=== PATIENT | male | born 1975 | race Caucasian/White ===

== ENCOUNTER 2020-03-25 00:35 | Emergency (ER) | payer SELFPAY ==
--- NOTE | ~2020-03-25 | XR_ITS ---
EXAMINATION: XR knee LT min 4V, XR tibia fibula LT 2V DATE: 03/25/2020 01:15 INDICATION: Lateral left lower leg pain. Left knee injury. TECHNIQUE: 1. Anteroposterior, 2 oblique and crosstable lateral views of the affected knee were obtained 2. AP and lateral views of the left lower leg were obtained. COMPARISON: None. FINDINGS: Alignment is normal. No fracture. Joint spaces are normal. No left knee or ankle joint effusion. Sof t tissues are unremarkable. IMPRESSION: 1. Negative left knee and tibia/fibula radiographs. Reviewed, dictated and finalized at location A. NSED MARINE ENGINEER IMPRESSION: 1. Negative left knee and tibia/fibula radiographs.
--- NOTE | 2020-03-25 00:38 | ED.EXTPRO ---
HPI - Extremity Problem General Chief complaint: Extremity Problem,Nontraumatic Stated complaint: pain left lower leg Time Seen by Provider: 03/25/20 00:38 Source: patient Mode of arrival: ambulatory Limitations: no limitations History of Present Illness HPI Narrative: Patient is a 44-year-old male who presents to the emergency department for evaluation of left lower extremity pain. Patient states he has had pain over the past 2 weeks which occurs only when he is standing up at his place of work. Patient states that he is required to stand for long periods of time and experiences a very sharp feeling that starts in his lower thigh and radiates through to his knee. This does not occur when he is walking. In fact walking relieves the pain. He denies any redness, swelling or masses. No bruising. No numbness. Patient states that he was doing some Internet searching online and is worried he may have a blood clot. He has no history of DVT. No recent surgery. No recent long car or air travel. Patient has been taking ibuprofen without much improvement in his symptoms. Related Data Allergies Allergy/AdvReac Type Severity Reaction Status Date / Time No Known Allergies Allergy Verified 03/25/20 00:36 Review of Systems Review of Systems: Narrative: CONSTITUTIONAL: Denies fever, chills, or sweats. CARDIOVASCULAR: Denies chest pain, palpitations, or edema. RESPIRATORY: Denies cough or dyspnea. GASTROINTESTINAL: Denies abdominal pain, nausea, vomiting, or diarrhea. GENITOURINARY: Denies dysuria or hematuria. SKIN: Denies rash or itching. MUSCULOSKELETAL: Denies back pain, reports left lower extremity pain NEUROLOGIC: Denies headache, numbness, or weakness. [facility] Past Medical History Medical History Asthma Surgical History Surgical History (Updated 03/25/20 @ 00:58 by Zari Monteiro MD) Hx of appendectomy Social History Social History (Updated 03/25/20 @ 00:58 by Zari Monteiro MD) Smoking status: Never smoker Alcohol intake: current Alcohol use details: Social, rare Substance use: never Gender identity (if verbalized by the patient): Male Exam Narrative: Exam Narrative: GENERAL: Awake, alert, conversant HEAD: Normocephalic, atraumatic. EYES: PERRLA and EOMI. ENT: Nares clear, no rhinorrhea or epistaxis. Mucous membranes moist. NECK: Supple. CHEST: No respiratory distress, breathing even and non labored HEART: Regular rate, sinus rhythm ABDOMEN:Non distended, non tender EXTREMITIES: Normal range of motion. No edema. No erythema. No tenderness to palpation to the lateral medial aspect of the left lower extremity. No pain with internal or external rotation. Full flexion and extension at the left hip, left knee, ankle without pain or limitation. No ecchymoses. Intact distal sensation. Extremity is warm and well-perfused. No deformity. SKIN: Warm, dry, no rash. NEURO:No focal deficits. Alert and oriented x3 Course Vital Signs Vital signs: Vital Signs Temperature 36.7 C 03/25/20 00:49 Pulse Rate 91 03/25/20 00:49 Respiratory Rate 16 03/25/20 00:49 Blood Pressure 173/100 H 03/25/20 00:49 Pulse Oximetry 99 03/25/20 00:49 Temperature 36.7 C 03/25/20 00:49 Pulse Rate 91 03/25/20 00:49 Respiratory Rate 16 03/25/20 00:49 Blood Pressure 173/100 H 03/25/20 00:49 Pulse Oximetry 99 03/25/20 00:49 MDM - Extremity (Nontraumatic) MDM Narrative Medical decision making narrative: Patient presented for evaluation of atraumatic left leg pain. At the time of assessment, ABCs are intact, vital signs notable for elevated blood pressure reading, patient denies any history of hypertension. Patient's left lower extremity is warm, well perfused with soft compartments, no evidence of deformity, no erythema, edema or reproducible pain. Given pain is only when the patient is standing and does have some radiating nature, I wa
[2020-03-25 00:49] VITALS: BP 173/100; PULSE 91; RESP 16; TEMP 36.7; O2SAT 99
[2020-03-25 01:28] LABS: Basophils Absolute Auto 0.1 K/mm3 (0.0-0.1); Eosinophils Absolute Auto 0.5 K/mm3 (0-0.3); Eosinophils Percent Auto 6.6 % (0-4.4); Hematocrit 43.4 % (42.0-52.0); Hemoglobin 14.7 g/dL (14.0-18.0); Immature Granulocyte Absolute 0.06 K/mm3 (0.00-0.031); Immature Granulocyte Percent A 0.8 % (0-0.5); Lymphocytes Absolute Auto 1.83 K/mm3 (0.9-3.2); Lymphocytes Percent Auto 25.7 % (18.3-44.2); Mean Corpuscular HGB Conc 33.9 g/dl (32-36); Mean Corpuscular Hemoglobin 31.9 pg (26-34); Mean Corpuscular Volume 94.1 fl (80-100); Mean Platelet Volume 10.8 fl (7.4-10.4); Monocytes Absolute Auto 0.8 K/mm3 (0.1-0.6); Monocytes Percent Auto 10.7 % (2.6-8.5); Neutrophils Absolute Auto 3.9 K/mm3 (1.3-6.7); Neutrophils Percent Auto 55.2 % (45.5-73.1); Platelet Count Result 163 k/mm3 (150-375); Red Blood Count 4.61 M/mm3 (4.6-6.20); Red Cell Distribution Width 12.6 % (11.5-14.5); White Blood Count 7.1 K/mm3 (4.5-10.0)
[2020-03-25 01:42] LABS: Anion Gap 6 mmol/L (8-16); Blood Urea Nitrogen 31 mg/dL (9-20); Calcium 9.1 mg/dL (8.4-10.2); Carbon Dioxide 29 mmol/L (22-30); Chloride 104 mmol/L (98-107); Estimated Glomerular Filt Rate > 60; Glucose 91 mg/dL (75-110); Sodium 139 mmol/L (137-145)
[2020-03-25 01:49] LABS: D Dimer 0.27 ug/mL (<0.48)
[2020-03-25 02:30] VITALS: BP 169/102; PULSE 88; RESP 18; O2SAT 99
== END 2020-03-25 02:30 | disposition home or self-care (01) ==
PROVIDERS: Emergency Provider Emergency Medicine
DX: M79.662 Pain in left lower leg (principal); J45.909 Unspecified asthma, uncomplicated
CPT/HCPCS: 36415; 73564; 73590; 80048; 85025; 85380; 99284

== ENCOUNTER 2020-03-25 07:13 | Outpatient (CLI) | payer SELFPAY ==
--- NOTE | ~2020-03-25 | US_ITS ---
EXAMINATION: US venous doppler [facility] DATE: 03/25/2020 07:44 INDICATION: Left lower limb pain TECHNIQUE: Grayscale ultrasound images without and with compression and Doppler ultrasound images of the left lower extremity veins were obtained. COMPARISON: None. FINDINGS: The visualized portions of left common femoral vein, profunda (deep) femoral vein, femoral vein, popl iteal vein, peroneal veins, posterior tibial veins, gastrocnemius vein and greater saphenous vein out flow are patent. IMPRESSION: 1. No deep venous thrombosis in the left lower limb. Reviewed, dictated and finalized at location A. L TENDER
== END 2020-03-25 07:14 | disposition home or self-care (01) ==
PROVIDERS: PCP Family Medicine; Visit Provider Family Medicine
DX: M79.662 Pain in left lower leg (principal)
CPT/HCPCS: 93971

== ENCOUNTER 2021-04-28 17:08 | Emergency (ER) | payer OTHER, SELFPAY ==
--- NOTE | ~2021-04-28 | XR_ITS ---
EXAMINATION: XR chest 1V portable EXAM DATE: 04/28/2021 19:28 INDICATION: dyspnea, tachycardia/COVID positive. TECHNIQUE: Portable AP frontal chest x-ray was obtained. There is no prior study for comparison. FINDINGS: Low lung volume. Possible small amount of left basilar pneumonia. No pneumothorax or pleura l effusion. Cardiomediastinal silhouette is normal. There are no osseous abnormalities identified. IMPRESSION: Equivocal small amount of basilar pneumonia. Reviewed, dictated and finalized at location G. PREAD CUTTER HAND
[2021-04-28 17:38] VITALS: BP 164/123; PULSE 110; RESP 20; TEMP 36.7; O2SAT 98
--- NOTE | 2021-04-28 17:41 | ED.URI ---
HPI - URI/Sore Throat General Chief Complaint: Upper Respiratory Infection Stated Complaint: URI/COUGH Time Seen by Provider: 04/28/21 17:41 Source: patient Mode of arrival: ambulatory Limitations: no limitations History of Present Illness HPI Narrative: 45-year-old man comes in today complaining of cough, shortness of breath, congestion, and chest discomfort with a deep breath that has been present for the last 2 days. Patient states he has had no fever, productive cough, calf pain or swelling, or sick exposures. He has not had the influenza or COVID vaccines. MD elicited complaint: cough and rhinorrhea Onset (ago): day(s) (2) Consistency: constant Severity: mild Description of mucous: clear Able to tolerate fluids by mouth: Yes Exacerbating factors: deep breaths Relieving factors: nothing Associated symptoms: nasal congestion, cough, chest pain and shortness of breath Related Data Home Medications Medication Instructions Recorded Confirmed litheanine See Rx Instructions .ROUTE .COMPLEX 03/28/20 03/28/20 magnesium 30 mg tablet See Rx Instructions PO DAILY 03/28/20 03/28/20 ociumum See Rx Instructions .ROUTE .COMPLEX 03/28/20 03/28/20 potassium 99 mg tablet See Rx Instructions .ROUTE .COMPLEX 03/28/20 03/28/20 Allergies Allergy/AdvReac Type Severity Reaction Status Date / Time No Known Allergies Allergy Verified 03/28/20 11:16 Review of Systems Review of Systems: All systems reviewed & are unremarkable except as noted in HPI and below Constitutional: Constitutional: Denies chills and Denies fever(s) ENT: Reports nasal congestion and Denies sore throat Cardiovascular: Cardiovascular: Reports chest pain and Denies radiating jaw, neck or arm pain Respiratory: Respiratory: Reports cough, Reports dyspnea and Denies wheezing Gastrointestinal: Gastrointestinal: Denies abdominal pain, Denies diarrhea, Denies nausea and Denies vomiting Musculoskeletal: Musculoskeletal: Denies arthralgias and Denies joint swelling Comments: No calf pain or leg swelling. Neurologic: Denies vertigo, Denies dizziness and Denies syncope Allergic/Immunologic: Allergic/Immunologic: Denies lip swelling and Denies throat swelling PMFSH Past Medical History Medical History Anxiety Asthma Asthma Claustrophobia Constipation Cyst of left knee joint Diarrhea Dizziness Frequent urination Hair loss Head congestion Memory loss Peroneal neuritis SOB (shortness of breath) Surgical History Surgical History Hx of appendectomy Family History Family History Other Arthritis Asthma Depression Diabetes mellitus High cholesterol Hypertension Neuropathy Social History Social History Smoking status: Never smoker Alcohol intake: current Drinks per week: 6 Alcohol use details: approx 6drinks a wk Substance use: former Substance use type: marijuana Additional occupation/education comments: [employer] Gender identity (if verbalized by the patient): Male Exam Const: General: healthy appearing, no acute distress and alert Orientation/consciousness: patient oriented x3 Limitations: no limitations HENMT: Head: normal to inspection Ears: external ears normal, TM's normal bilaterally and EAC's normal General nose exam: Normal nares present Face and sinus: normal facial exam Mouth: Yes moist mucous membranes Throat: posterior oropharynx normal Eyes: Conjunctivae: conjunctivae normal Pupils: Equal, round and reactive pupils present EOM: EOMs intact bilaterally Resp: Effort & Inspection: normal respiratory effort and not labored Auscultation: clear to auscultation bilaterally, no rales, no rhonchi and no wheezes Cardio: Rate: tachycardic Rhythm: regular rhythm
[2021-04-28 18:15] VITALS: BP 147/97
[2021-04-28 18:22] LABS: Influenza A QL RT-PCR Negative (Negative); Influenza B QL RT-PCR Negative (Negative); SARS-CoV-2 RNA PCR Positive (Negative)
--- NOTE | 2021-04-28 18:34 | ECG_ITS ---
Measurements Intervals [place] Rate: 119 P: 42 OK: 166 QRS: -52 QRSD: 89 T: 43 QT: 291 QTc: 410 Interpretive Statements SINUS TACHYCARDIA LEFT ANTERIOR FASCICULAR BLOCK BASELINE ARTIFACT- I, II, III, AVR, AVL, AVF, V1-V2 ABNORMAL ECG Electronically Signed On 04-28-2021 20:05:42 SLAG MIXER by Gerard Morejon D.O.
[2021-04-28 18:49] LABS: Basophils Absolute Auto 0.07 K/mm3 (0.00-0.10); Basophils Percent Auto 0.8 % (0.0-1.0); Eosinophils Absolute Auto 0.31 K/mm3 (0.02-0.50); Eosinophils Percent Auto 3.6 % (1.0-6.0); Hematocrit 50.6 % (40.0-54.0); Hemoglobin 16.2 g/dL (14.0-18.0); Immature Granulocyte Absolute 0.09 K/mm3 (0.00-0.00); Lymphocytes Absolute Auto 1.11 K/mm3 (1.10-4.50); Lymphocytes Percent Auto 12.8 % (18.0-42.0); Mean Corpuscular Hemoglobin 29.3 pg (27.0-31.0); Mean Corpuscular Volume 91.5 fL (78.0-102.0); Mean Platelet Volume 10.8 fl (8.7-11.0); Monocytes Absolute Auto 0.93 K/mm3 (0.10-0.90); Monocytes Percent Auto 10.7 % (2.0-11.0); Neutrophils Absolute Auto 6.2 K/mm3 (1.7-7.2); Neutrophils Percent Auto 71.1 % (50.0-70.0); Platelet Count Result 233 K/mm3 (150-420); Red Blood Count 5.53 M/mm3 (4.70-6.10); Red Cell Distribution Width 13.8 % (11.6-14.4); White Blood Count 8.7 K/mm3 (4.8-10.8)
[2021-04-28 19:03] LABS: D Dimer 0.37 mg/L (0.19-0.50)
[2021-04-28 19:07] LABS: Alanine Aminotransferase 47 U/L (16-63); Albumin Level 3.9 g/dL (3.4-5.0); Alkaline Phosphatase 93 U/L (46-116); Anion Gap 11 mmol/L (8-16); Aspartate Amino Transferase 19 U/L (15-37); Bilirubin,Total 0.5 mg/dL (0.00-1.00); Blood Urea Nitrogen 24 mg/dL (7-18); Calcium 9.1 mg/dL (8.5-10.1); Carbon Dioxide 26 mmol/L (21-32); Chloride 103 mmol/L (98-108); Estimated CRCL calculation 128 ml/min; Estimated Glomerular Filt Rate > 60; Glucose 129 mg/dL (70-99); Osmolality Calculated 296 mOsm/kg (285-295); Potassium 3.9 mmol/L (3.5-5.1); Sodium 140 mmol/L (136-145); Total Protein 7.5 g/dL (6.4-8.2); Troponin I 4.6 ng/L (0.00-60.4)
--- NOTE | 2021-04-28 19:09 | PC.NURSE ---
Report given to HILARIO Swann
[2021-04-28 19:35] VITALS: BP 147/106; PULSE 112; RESP 16; TEMP 36.9; O2SAT 95
== END 2021-04-28 19:58 | disposition home or self-care (01) ==
PROVIDERS: Emergency Provider Emergency Medicine
DX: U07.1 COVID-19 (principal); E86.0 Dehydration; I10 Essential (primary) hypertension
CPT/HCPCS: 36415; 71045; 80053; 84484; 85025; 85380; 87502; 93005; 99283; 99284; C9803; U0003; U0005

== ENCOUNTER 2022-09-07 11:19 | Emergency (ER) | payer OTHER, SELFPAY ==
[2022-09-07] VITALS (8 sets, daily range): BP systolic 109–150; BP diastolic 72–91; PULSE 83–98; RESP 15–20; TEMP 36.2; O2SAT 93–98
--- NOTE | ~2022-09-07 | XR_ITS ---
EXAMINATION: XR chest 2V DATE: 09/07/2022 11:35 INDICATION: Chest pain. Shortness of breath. TECHNIQUE: Frontal and lateral views of the chest were obtained. COMPARISON: Chest single view 04/28/2021 FINDINGS: The lung volumes are small. There is mild atelectasis in the lower lung zones. No pleural e ffusion or pneumothorax. The heart size is normal. IMPRESSION: 1. Small lung volumes with mild atelectasis in the lower lung zones. Reviewed, dictated and finalized at location A.
--- NOTE | 2022-09-07 11:20 | ECG_ITS ---
Measurements Intervals [place] Rate: 85 P: 29 PA: 162 QRS: -54 QRSD: 88 T: 24 QT: 328 QTc: 391 Interpretive Statements SINUS RHYTHM LEFT ANTERIOR FASCICULAR BLOCK ABNORMAL ECG COMPARED TO ECG 04/28/2021 18:49:57 SINUS RHYTHM NOW PRESENT Electronically Signed On 09-07-2022 16:42:57 CDT by Gerard Morejon D.O.
[2022-09-07 11:51] LABS: Basophils Absolute Auto 0.1 K/mm3 (0.0-0.1); Basophils Percent Auto 0.6 % (0.2-1.2); Eosinophils Absolute Auto 0.1 K/mm3 (0-0.3); Eosinophils Percent Auto 0.3 % (0-4.4); Hemoglobin 17.1 g/dL (14.0-18.0); Immature Granulocyte Absolute 0.14 K/mm3 (0.00-0.031); Immature Granulocyte Percent A 0.9 % (0-0.5); Lymphocytes Absolute Auto 1.33 K/mm3 (0.9-3.2); Lymphocytes Percent Auto 8.4 % (18.3-44.2); Mean Corpuscular HGB Conc 31.7 g/dl (32-36); Mean Corpuscular Hemoglobin 28.7 pg (26-34); Mean Corpuscular Volume 90.6 fl (80-100); Mean Platelet Volume 10.6 fl (7.4-10.4); Monocytes Absolute Auto 0.9 K/mm3 (0.1-0.6); Monocytes Percent Auto 5.9 % (2.6-8.5); Neutrophils Absolute Auto 13.3 K/mm3 (1.3-6.7); Neutrophils Percent Auto 83.9 % (45.5-73.1); Platelet Count Result 258 k/mm3 (150-375); Red Blood Count 5.96 M/mm3 (4.6-6.20); Red Cell Distribution Width 14.4 % (11.5-14.5); White Blood Count 15.9 K/mm3 (4.5-10.0)
--- NOTE | 2022-09-07 12:00 | ED.GENADULT ---
HPI - General Adult General Chief complaint: Chest Pain Stated complaint: cp Time Seen by Provider: 09/07/22 11:41 History of Present Illness HPI narrative: 47-year-old male with a history of low T presents for evaluation. Patient states that while he was at work he began to have some mild stomach pain. It was not going away so he called for transport to the emergency department. He denies chest pain. He denies cough and fever. Overall he feels pretty well. Related Data Home Medications Medication Instructions Recorded Confirmed litheanine See Rx Instructions .Route .COMPLEX 03/28/20 03/28/20 magnesium 30 mg tablet See Rx Instructions PO DAILY 03/28/20 03/28/20 ociumum See Rx Instructions .Route .COMPLEX 03/28/20 03/28/20 potassium 99 mg tablet See Rx Instructions .Route .COMPLEX 03/28/20 03/28/20 Allergies Allergy/AdvReac Type Severity Reaction Status Date / Time No Known Allergies Allergy Verified 09/07/22 11:24 Review of Systems Review of Systems: CONSTITUTIONAL: Denies fever, chills, or sweats. EYES: Denies visual changes, redness, or discharge. ENT: Denies rhinorrhea, congestion, sore throat, or otalgia. CARDIOVASCULAR: Denies chest pain, palpitations, or edema. RESPIRATORY: Denies cough or dyspnea. GASTROINTESTINAL: Denies abdominal pain, nausea, vomiting, or diarrhea. GENITOURINARY: Denies dysuria or hematuria. SKIN: Denies rash or itching. MUSCULOSKELETAL: Denies back pain, joint pain, or myalgia. NEUROLOGIC: Denies headache, numbness, or weakness. PSYCHIATRIC: Denies anxiety or depression. [facility] Past Medical History Medical History Anxiety Asthma Asthma Claustrophobia Constipation Cyst of left knee joint Diarrhea Dizziness Frequent urination Hair loss Head congestion Memory loss Peroneal neuritis SOB (shortness of breath) Surgical History Surgical History Hx of appendectomy Family History Family History Other Arthritis Asthma Depression Diabetes mellitus High cholesterol Hypertension Neuropathy Social History Social History Smoking status: Never smoker Alcohol intake: current Drinks per week: 6 Alcohol use details: approx 6drinks a wk Substance use: former Substance use type: marijuana Occupation/Education: occupation Additional occupation/education comments: [employer]/ [employer] Gender identity (if verbalized by the patient): Male Exam Narrative: GENERAL: Well-appearing, well-nourished, and in no acute distress. HEAD: Normocephalic, atraumatic. EYES: PERRLA and EOMI. ENT: Nares clear, no rhinorrhea or epistaxis. Mucous membranes moist. NECK: Supple. CHEST: Clear to auscultation. No respiratory distress. HEART: Regular rate and rhythm. No murmur heard. Normal peripheral pulses. ABDOMEN: Soft, nontender, nondistended, normal active bowel sounds. EXTREMITIES: Normal range of motion. No edema. SKIN: Warm, dry, no rash. NEURO: No focal deficits. Alert and oriented x3. PSYCH: Normal mood and affect. Course Vital Signs Vital signs: Vital Signs Temperature 97.2 F L 09/07/22 11:20 Pulse Rate 89 09/07/22 11:20 Respiratory Rate 18 09/07/22 11:20 Blood Pressure 138/91 H 09/07/22 11:20 Pulse Oximetry 96 09/07/22 11:20 Oxygen Delivery Room Air 09/07/22 11:20 Temperature 97.2 F L 09/07/22 11:20 Pulse Rate 89 09/07/22 11:20 Respiratory Rate 18 09/07/22 11:20 Blood Pressure 138/91 H 09/07/22 11:20 Pulse Oximetry 96 09/07/22 11:20 Oxygen Delivery Room Air 09/07/22 11:20 Medical Decision Making MDM Narrative Medical decision making narrative: 47-year-old male who is in overall good health presents to our department as he was having some abdominal pain.
[2022-09-07 12:01] LABS: Alanine Aminotransferase 45 U/L (6-50); Albumin Level 4.4 g/dL (3.5-5.1); Alkaline Phosphatase 93 U/L (38-126); Anion Gap 7 mmol/L (8-16); Aspartate Amino Transferase 34 U/L (17-59); Bilirubin,Total 0.5 mg/dL (0.2-1.3); Blood Urea Nitrogen 25 mg/dL (9-20); Calcium 9.1 mg/dL (8.4-10.2); Carbon Dioxide 29 mmol/L (22-30); Chloride 102 mmol/L (98-107); Estimated CRCL calculation 96 ml/min; Estimated Glomerular Filt Rate 59; Glucose 135 mg/dL (65-110); Lipase 44 U/L (23-300); Potassium 4.5 mmol/L (3.4-5.0); Sodium 138 mmol/L (137-145)
[2022-09-07 12:02] LABS: Partial Thromboplastin Time 21.4 SECONDS (22.3-36.8); Prothrombin Time 13.6 Seconds (11.1-14.7)
[2022-09-07 12:12] LABS: Troponin I < 0.012 ng/mL (0.000-0.034)
[2022-09-07 14:11] LABS: Appearance Urine Cloudy (Clear); Bacteria Urine None Seen /hpf; Bilirubin Urine 1+ (Negative); Blood Urine Negative (Negative); Color Urine Dark Yellow (Yellow); Glucose Urine UA Negative (Negative); Ketones Urine Trace mg/dL (Negative); Leukocyte Esterase Ur Negative LEU/UL (Negative); Need Manual Microscopic Reviewed; Nitrate Urine Negative (Negative); Protein Urine Trace mg/dL (Negative); RBC Urine 0-2 /hpf (0-2); Specific Grav Ur 1.028 (1.001-1.035); Squamous Epithelial Cell Urine None seen /hpf (Few); WBC Urine 0-5 /hpf; pH Urine 5.5 (5.0-9.0)
[2022-09-07 14:12] LABS: Add Urine Microscopic? YES
== END 2022-09-07 14:58 | disposition home or self-care (01) ==
PROVIDERS: Emergency Medicine; Emergency Provider Emergency Medicine
DX: E86.0 Dehydration (principal); J45.909 Unspecified asthma, uncomplicated; Z79.51 Long term (current) use of inhaled steroids; Z79.891 Long term (current) use of opiate analgesic
CPT/HCPCS: 36415; 71046; 80053; 81001; 83690; 84484; 85025; 85610; 85730; 93005; 99284